=== PATIENT | male | born 1955 | race Caucasian/White ===

== ENCOUNTER 2017-06-21 07:05 | Day surgery (SDC) | payer OTHER ==
[~2017-06-21] VITALS: Ht 167.6 cm; Wt 71.9 kg
[2017-06-21 07:50] VITALS: BP 133/65; PULSE 65; RESP 24; Ht 167.6 cm; Wt 71.9 kg
[2017-06-21] MEDS ORDERED: HTN MED PO (09:04)
[2017-06-21] MEDS ORDERED: FENTAnyl 50 MCG/ML VIAL ONE (09:21)
[2017-06-21] MEDS ORDERED: MIDAZOLAM 1 MG/ML 2 ML INJ ONE ×2 (09:21)
[2017-06-21 09:27] VITALS: BP 92/61; PULSE 56; RESP 14
--- NOTE | 2017-06-21 10:00 | GILP ---
DATE OF PROCEDURE: 06/21/2017 PROCEDURE PERFORMED: Colonoscopy, biopsy and polypectomy. SURGEON: Kait Aquino MD PREOPERATIVE DIAGNOSIS: Screening colonoscopy. POSTOPERATIVE DIAGNOSES: 1. Colonoscopy all the way to the cecum. 2. The patient had 2 sigmoid colon polyps and one of them was removed using the snare and electrocautery and the one with the biopsy forceps. 3. Internal hemorrhoids. INDICATION: Mr. Nehemias Recinos is a 61-year-old male patient who is scheduled for screening colonoscopy. The procedure and possible complications were well explained to the patient. He understood and consented to the procedure. DESCRIPTION OF PROCEDURE: Under the influence of fentanyl and Versed, the colonoscope was carefully introduced in the rectum. Under direct vision it was advanced all the way to the cecum. FINDINGS: He had 2 sigmoid colon polyps and one of them was removed using the biopsy forceps and the other one with snare and electrocautery. The patient was noted to have internal hemorrhoids. He tolerated that procedure very well. There was no complications from the procedure. At the end of procedure he was awake with stable vital signs. He was discharged home in the care of his family. IMPRESSION: Please see postop diagnoses. PLAN: 1. Anusol HC 2.5 percent cream q.h.s. p.r.n. 2. Await histopathology report. 3. Next screening colonoscopy in 5 years. Dictated By: MD CARMEN Aaron/reanna/shandra /Document#: [id number]
== END 2017-06-21 12:11 | disposition home or self-care (01) ==
LOC: GIL 07:05
PROVIDERS: ATTEND Internal Medicine Gastroenterology
DX: Z12.11 Encounter for screening for malignant neoplasm of colon (principal); D12.5 Benign neoplasm of sigmoid colon; K64.8 Other hemorrhoids; I10 Essential (primary) hypertension
CPT/HCPCS: 45385; 88305; J2250; J3010; Z7610